=== PATIENT | male | born 1975 | race Caucasian/White ===

== ENCOUNTER 2017-09-04 03:25 | Emergency (ER) | payer OTHER ==
[~2017-09-04] VITALS: Ht 172.7 cm; Wt 86.5 kg
[~2017-09-04 03:25] MED LIST: AMOX500C2; ZITHROMAX
--- NOTE | 2017-09-04 03:50 | ED Upper Extremity ---
General Stated Complaint: POSS SPIDER BITE Source: patient Exam Limitations: no limitations History of Present Illness Time seen by provider: 03:37 Initial Comments Patient presents to ER by private conveyance with chief complaint of swelling and tenderness on his right elbow. It started getting worse this morning the point that he is concerned maybe he's gotten spider bite. He says yesterday he was working tearing out old house and there are a lot of spiders in there. He did not witness any spider bite. He has had no drainage, fever, nausea, vomiting , chills, malaise. He is right-handed. No trauma to the right elbow. He has not taken any elvw-mgg-xvbapfw pain relievers. He smokes about half a pack per day. Denies drug use and only occasional alcohol use. He says he tried to drain it himself by poking a needle in it but nothing really came out of it. Tetanus shot was in the last year Allergies and Home Medications Allergies Coded Allergies: No Known Drug Allergies (Unverified , 03/30/10) Constitutional: No chills, No diaphoresis, No fever, No malaise EENTM: No ear pain, No blurred vision Respiratory: No cough, No short of breath Cardiovascular: No chest pain, No palpitations Gastrointestinal: No diarrhea, No nausea, No vomiting Genitourinary: No discharge, No dysuria Skin: other (swelling and pain over the right elbow) Past Mwxnwga-Bhiebi-Qrklsn Hx Patient Social History Alcohol Use: Occasionally Uses Recreational Drug Use: No Smoking Status: Current Everyday Smoker Type Used: Cigarettes (0.5 ppd) Recent Foreign Travel: No Contact w/Someone Who Travel: No Immunizations Up To Date Date of Pneumonia Vaccine: Nov 03, 2015 Date of Influenza Vaccine: Nov 03, 2015 Reproductive System Hx Reproductive Disorders: No Physical Exam Vital Signs Capillary Refill : General Appearance: WD/WN, no apparent distress HEENT: PERRL/EOMI, pharynx normal Cardiovascular: no edema, no JVD Respiratory: no respiratory distress, no accessory muscle use Shoulder: normal inspection, non-tender, no evidence of injury, normal ROM Elbow/Forearm: normal ROM (no pain to passive or resisted extension of the right wrist), Right, pain, soft tissue tenderness, swelling (over the dorsal portion of the right elbow without a central poor or any purulent discharge.) Wrist: Yes normal inspection, Yes non-tender, Yes no evidence of injury, Yes normal ROM Hand: normal inspection, non-tender, no evidence of injury Neurologic/Psychiatric: alert, normal mood/affect, oriented x 3 Skin: normal color, warm/dry Progress/Results/Core Measures Progress Note : Time: 03:44 Progress Note Appearance is not concordant with an abscess rather looks like he has bursitis / lateral epicondylitis. We will start rice therapy and steroids and if he is not getting better give him strict return precautions. Departure Impression Impression: Primary Impression: Lateral epicondylitis of elbow Additional Impression: Bursitis of elbow Qualified Codes: M70.21 - Olecranon bursitis, right elbow Disposition: 01 HOME, SELF-CARE Condition: Stable Departure-Patient Inst. Decision time for Depature: 03:51 Referrals: SÁNCHEZ PIERSON MD (PCP) Primary Care Physician Patient Instructions: Olecranon Bursitis (DC) Add. Discharge Instructions: Start taking a daily NSAID until your pain and swelling goes away such as Naprosyn 2 capsules twice a day or ibuprofen 4 tablets 3 times a day. If you have pain not controlled by one of the scheduled NSAIDs then you can use 1000 mg of Tylenol every 8 hours as needed in addition. Take 2 tablets of the prednisone daily until complete for 5 days to help bring the swelling down in your elbow. Apply an ice pack directly over the elbow for 20 minutes every 4-6 hours for the first several days to keep the swelling and pain down. Keep n Ray bandage or other compression dressing such as a neoprene elbow sleeve on your elbow at all times except to bathe and keep your elbow elevated above the level of your heart when possible. Rest your elbow for the next several days while it is healing. If you do not see some improvement over the next week or you begin to have worsening symptoms, fever, nausea or vomiting or severe, increasing redness in your elbow you should go to your doctor or you may return to the ER if it is appropriate to be reevaluated. Typical resolution is within 2-4 weeks. Scripts Prednisone (Prednisone) 20 Mg Tab 40 MG PO DAILY for 5 Days, #10 TAB 0 Refills Prov: BIPIN GARCIA 09/04/17 Work/School Note: Work Release Form Date Seen in the Emergency Department: Sep 04, 2017 Return to Work: Sep 05, 2017 Restrictions: No Restrictions Other Restrictions Listed Below: Light duty right elbow for the next 2 weeks. Copy Copies To 1: LIVIER MEDEIROS TITUS J Sep 04, 2017 03:50
[2017-09-04] MEDS ORDERED: PRD20T PO (03:55)
[2017-09-04 04:00] VITALS: BP 138/94
== END 2017-09-04 04:00 | disposition home or self-care (01) ==
LOC: EDUNIT# 03:25 → ER 03:28
DX: M77.11 Lateral epicondylitis, right elbow (principal); M70.31 Other bursitis of elbow, right elbow; F17.210 Nicotine dependence, cigarettes, uncomplicated
CPT/HCPCS: 99282

== ENCOUNTER 2017-10-07 10:00 | Outpatient (RCR) | payer OTHER ==
[2017-09-23] MEDS: VANCOMYCIN 1250 MG/NS 250 ML IVPB IV SCH ×2 (18:22)
[2017-09-23 18:28] VITALS: BP 151/94
[2017-09-23 18:43] VITALS: BP 151/94
[2017-09-23 19:35] VITALS: BP 151/94
[2017-09-24] MEDS: VANCOMYCIN 1250 MG/NS 250 ML IVPB IV SCH ×4 (08:55→18:12)
[2017-09-24] MEDS: CATHETER FLUSH 10 ML SYR IV PRN ×3 (08:55→18:13)
[2017-09-24 10:37] VITALS: BP 151/80
[2017-09-24 17:50] VITALS: BP 134/85
[2017-09-25 07:55] VITALS: BP 124/90
[2017-09-25] MEDS: CATHETER FLUSH 10 ML SYR IV PRN ×3 (08:05→18:56)
[2017-09-25] MEDS: VANCOMYCIN 1250 MG/NS 250 ML IVPB IV SCH ×4 (08:05→18:47)
[2017-09-25 18:04] VITALS: BP 140/81
[2017-09-25 20:12] VITALS: BP 140/81
[2017-09-26] MEDS: CATHETER FLUSH 10 ML SYR IV PRN ×2 (08:09→18:17)
[2017-09-26] MEDS: VANCOMYCIN INJECTION 1,750 MG in NS IV 500 ML 500 ML IV SCH ×2 (08:10→18:17)
[2017-09-26 10:30] VITALS: BP 135/78
[2017-09-26 18:27] VITALS: BP 138/88
[2017-09-27 07:19] VITALS: BP 120/73
[2017-09-27] MEDS: VANCOMYCIN INJECTION 2,000 MG in NS IV 500 ML 500 ML IV SCH ×2 (08:26→18:03)
[2017-09-27 08:45] VITALS: BP 120/73
[2017-09-27 10:32] VITALS: BP 120/73
[2017-09-27 17:50] VITALS: BP 157/94
[2017-09-27 20:22] VITALS: BP 157/94
[2017-09-28] MEDS: CATHETER FLUSH 10 ML SYR IV PRN ×2 (08:00→10:05)
[2017-09-28] MEDS: VANCOMYCIN INJECTION 2,000 MG in NS IV 500 ML 500 ML IV SCH ×2 (08:02→18:30)
[2017-09-28 10:10] VITALS: BP 151/84
[2017-09-28 17:45] VITALS: BP 136/83
[2017-09-28 20:30] VITALS: BP 136/83
[2017-09-29 08:05] VITALS: BP 137/93
[2017-09-29] MEDS: CATHETER FLUSH 10 ML SYR IV PRN (08:25)
[2017-09-29] MEDS: VANCOMYCIN INJECTION 2,000 MG in NS IV 500 ML 500 ML IV SCH (08:30)
[2017-09-30] MEDS: VANCOMYCIN INJECTION 2,000 MG in NS IV 500 ML 500 ML IV SCH (08:30)
[2017-10-01] MEDS: VANCOMYCIN INJECTION 2,000 MG in NS IV 500 ML 500 ML IV SCH ×2 (08:18→18:03)
[2017-10-01 08:25] VITALS: BP 137/80
[2017-10-01 18:15] VITALS: BP 138/86
[~2017-10-07] VITALS: Ht 172.7 cm; Wt 83.9 kg
[~2017-10-07 10:00] MED LIST changes: +CEPH500C PO; +CEPH500T PO; +HYDR-34 PO; +PRD20T PO; +TROUGH ORDER-PHARMACY XX NR; +VANC1.257 IV
[2017-10-07 10:10] VITALS: BP 119/68
== END 2017-12-22 | disposition home or self-care (01) ==
LOC: 4TH RCR 10:00
PROVIDERS: ATTEND Internal Medicine
DX: L02.511 Cutaneous abscess of right hand (principal)
CPT/HCPCS: 36415; 36592; 76937; 80202; 96365; 96366; 99211; 99212

== ENCOUNTER 2021-06-05 16:24 | Emergency (ER) | payer BC, OTHER ==
[~2021-06-05] VITALS: Ht 172 cm; Wt 82.0 kg
[~2021-06-05 16:24] MED LIST changes: -TROUGH ORDER-PHARMACY XX NR
[2021-06-05] MEDS ORDERED: LIDOCAINE 1% INJ 20 ML 20 ML VIAL INJ ONE (18:00)
[2021-06-05] MEDS ORDERED: CEPH500T PO (18:36)
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
[2021-06-05 20:49] VITALS: BP 120/65
== END 2021-06-05 20:49 ==
LOC: EDUNIT# 16:24 → ER 16:26
DX: S81.812A Laceration without foreign body, left lower leg, initial encounter (principal); W26.8XXA Contact with other sharp object(s), not elsewhere classified, initial encounter

== ENCOUNTER 2021-06-18 17:26 | Emergency (ER) | payer BC ==
[~2021-06-18] VITALS: Ht 170 cm; Wt 79.3 kg
[2021-06-18 17:40] VITALS: BP 123/70
== END 2021-06-18 17:44 | disposition home or self-care (01) ==
LOC: EDUNIT# 17:26 → ER 17:28
DX: Z48.02 Encounter for removal of sutures (principal)

== ENCOUNTER 2021-07-29 05:58 | Emergency (ER) | payer BC, OTHER ==
[~2021-07-29] VITALS: Ht 175.3 cm; Wt 86.2 kg
[2021-07-29] MEDS ORDERED: CLIN300C12 (06:10)
[2021-07-29] MEDS ORDERED: PANTOPRAZOLE 40 MG (PROTONIX) VIAL IV ONE (06:15)
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
[2021-07-29 06:34] LABS: BASOPHILS % (AUTO) 0 % (0-10); EOSINOPHILS % (AUTO) 0 % (0-10); HEMATOCRIT 46 % (40-54); HEMOGLOBIN 16.1 g/dL (13.3-17.7); LYMPHOCYTES % (AUTO) 23 % (12-44); MEAN CORPUSCULAR HEMOGLOBIN 32 pg (25-34); MEAN CORPUSCULAR HGB CONC 35 g/dL (32-36); MEAN CORPUSCULAR VOLUME 92 fL (80-99); MEAN PLATELET VOLUME 8.5 fL (9.0-12.2); MONOCYTES # (AUTO) 0.6 10^3/uL (0.0-1.0); MONOCYTES % (AUTO) 7 % (0-12); NEUTROPHILS # (AUTO) 5.9 10^3/uL (1.8-7.8); NEUTROPHILS % (AUTO) 70 % (42-75); PLATELET COUNT 309 10^3/uL (130-400); WHITE BLOOD COUNT 8.5 10^3/uL (4.3-11.0)
[2021-07-29 06:36] LABS: BILIRUBIN,URINE NEGATIVE (NEGATIVE); CLARITY,URINE CLOUDY; COLOR,URINE YELLOW; GLUCOSE, URINE (UA) NEGATIVE (NEGATIVE); KETONES,URINE NEGATIVE (NEGATIVE); LEUKOCYTE ESTERASE ,URINE NEGATIVE (NEGATIVE); NITRITE,URINE NEGATIVE (NEGATIVE); PROTEIN,URINE NEGATIVE (NEGATIVE)
[2021-07-29 06:42] LABS: AMORPHOUS SEDIMENT,UR LARGE AMOR PHOSPHATE /LPF; BACTERIA,URINE NEGATIVE /HPF
[2021-07-29 06:47] LABS: AMPHETAMINE SCREEN, URINE POSITIVE (NEGATIVE); BARBITURATE SCREEN URINE NEGATIVE (NEGATIVE); BENZODIAZEPINES SCREEN URINE NEGATIVE (NEGATIVE); CANNABINOID SCREEN, URINE POSITIVE (NEGATIVE); COCAINE SCREEN URINE NEGATIVE (NEGATIVE); METHADONE STAT NEGATIVE (NEGATIVE); METHAMPHETAMINE SCREEN URINE S POSITIVE (NEGATIVE); OPIATE SCREEN URINE NEGATIVE (NEGATIVE); OXYCODONE STAT NEGATIVE (NEGATIVE); PROPOXYPHENE STAT NEGATIVE (NEGATIVE); TRICYCLIC ANTIDEPRESSANTS SCRE NEGATIVE (NEGATIVE)
[2021-07-29 06:59] LABS: ALBUMIN 4.6 GM/DL (3.2-4.5)
[2021-07-29 07:00] LABS: CHLORIDE 103 MMOL/L (98-107); POTASSIUM 4.3 MMOL/L (3.6-5.0); SODIUM 140 MMOL/L (135-145)
[2021-07-29 07:01] LABS: CALCIUM 9.7 MG/DL (8.5-10.1)
[2021-07-29 07:02] LABS: AMYLASE 55 U/L (25-125); GLUCOSE 114 MG/DL (70-105); TOTAL PROTEIN 7.3 GM/DL (6.4-8.2)
[2021-07-29 07:03] LABS: CARBON DIOXIDE 26 MMOL/L (21-32)
[2021-07-29 07:04] LABS: BILIRUBIN,TOTAL 0.5 MG/DL (0.1-1.0)
[2021-07-29 07:05] LABS: ALKALINE PHOSPHATASE 83 U/L (40-136)
[2021-07-29 07:06] LABS: CREATININE SERUM 1.06 MG/DL (0.60-1.30); GFR ESTIMATED 76
[2021-07-29 07:07] LABS: BUN/CREATININE RATIO 8
[2021-07-29 07:08] LABS: ALANINE AMINOTRANSFERASE 19 U/L (0-55)
[2021-07-29 07:10] LABS: LIPASE 52 U/L (8-78)
[2021-07-29] MEDS ORDERED: HOLD METFORMIN - RECEIVED CONTRAST 20 ML VIAL IV SCH (07:15)
[2021-07-29] MEDS ORDERED: IOHEXOL 350 MG/ML 100 ML (OMNIPAQUE 350) VIAL IV ONE (07:15)
[2021-07-29] MEDS ORDERED: NS 100 ML (IVPB) BAG IV ONE (07:15)
[2021-07-29] MEDS ORDERED: CATHETER FLUSH 10 ML SYR IV PRN (07:15)
--- NOTE | 2021-07-29 07:42 | Diagnostic Imaging Report ---
PROCEDURE: CT abdomen and pelvis with contrast. TECHNIQUE: Multiple contiguous axial images were obtained through the abdomen and pelvis after administration of intravenous contrast. Auto Exposure Controls were utilized during the CT exam to meet ALARA standards for radiation dose reduction. All CT scans use one or more of the following dose optimizing techniques: automated exposure control, MA and/or KvP adjustment based on patient size and exam type or iterative reconstruction. INDICATION: Mid abdominal pain Lung bases are clear. Liver appears normal. Gallbladder is decompressed. Pancreas is unremarkable. Spleen is not enlarged. Kidneys and adrenals appear normal. Small bowel is not dilated. There is large amount of stool in the colon. No evidence for appendicitis. Urinary bladder is normal. Prostate is not enlarged. IMPRESSION: Fecal stasis consistent with constipation. No acute abnormality seen in the abdomen or pelvis. Dictated by: Dictated on workstation # [id number]
[2021-07-29] MEDS ORDERED: PANT40TA2 PO (07:46)
[2021-07-29 08:23] VITALS: BP 148/98
== END 2021-07-29 08:23 | disposition home or self-care (01) ==
LOC: EDUNIT# 05:58 → ER 06:00
DX: K59.00 Constipation, unspecified (principal); F17.210 Nicotine dependence, cigarettes, uncomplicated; Z86.14 Personal history of Methicillin resistant Staphylococcus aureus infection
CPT/HCPCS: 74177; 80053; 80306; 81000; 82150; 83690; 83735; 85025; 99284; G0480; 36415; 80320

== ENCOUNTER 2022-03-31 02:02 | Emergency (ER) | payer BC ==
[~2022-03-31] VITALS: Ht 173 cm; Wt 86.2 kg
[~2022-03-31 02:02] MED LIST changes: +CLIN-144; +PANT40TA2 PO
[2022-03-31 02:04] VITALS: BP 157/98
[2022-03-31] MEDS ORDERED: LACTATED RINGERS 1,000 ML IV ONE (02:30)
[2022-03-31 02:34] LABS: BASOPHILS % (AUTO) 0 % (0-10); EOSINOPHILS % (AUTO) 0 % (0-10); HEMATOCRIT 41 % (40-54); HEMOGLOBIN 14.5 g/dL (13.3-17.7); LYMPHOCYTES # (AUTO) 1.3 10^3/uL (1.0-4.0); LYMPHOCYTES % (AUTO) 12 % (12-44); MEAN CORPUSCULAR HEMOGLOBIN 31 pg (25-34); MEAN CORPUSCULAR HGB CONC 36 g/dL (32-36); MEAN CORPUSCULAR VOLUME 88 fL (80-99); MEAN PLATELET VOLUME 8.5 fL (9.0-12.2); MONOCYTES # (AUTO) 0.4 10^3/uL (0.0-1.0); MONOCYTES % (AUTO) 3 % (0-12); NEUTROPHILS # (AUTO) 9.8 10^3/uL (1.8-7.8); NEUTROPHILS % (AUTO) 85 % (42-75); PLATELET COUNT 411 10^3/uL (130-400); WHITE BLOOD COUNT 11.6 10^3/uL (4.3-11.0)
[2022-03-31 02:41] LABS: CHLORIDE 105 MMOL/L (98-107); POTASSIUM 3.7 MMOL/L (3.6-5.0); SODIUM 138 MMOL/L (135-145)
[2022-03-31 02:42] LABS: ALBUMIN 4.5 GM/DL (3.2-4.5)
[2022-03-31 02:43] LABS: CALCIUM 9.2 MG/DL (8.5-10.1)
[2022-03-31 02:44] LABS: GLUCOSE 125 MG/DL (70-105); TOTAL PROTEIN 7.4 GM/DL (6.4-8.2)
[2022-03-31 02:45] LABS: CARBON DIOXIDE 20 MMOL/L (21-32)
[2022-03-31 02:46] LABS: BILIRUBIN,TOTAL 0.5 MG/DL (0.1-1.0)
[2022-03-31 02:48] LABS: ALKALINE PHOSPHATASE 75 U/L (40-136); CREATININE SERUM 1.03 MG/DL (0.60-1.30); GFR ESTIMATED 91
[2022-03-31 02:49] LABS: BUN/CREATININE RATIO 13
[2022-03-31 02:51] LABS: ALANINE AMINOTRANSFERASE 22 U/L (0-55); SALICYLATE < 5.0 MG/DL (5.0-20.0)
[2022-03-31 02:59] LABS: ACETAMINOPHEN < 10 UG/ML (10-30)
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
[2022-03-31 03:11] LABS: TSH (THYROID ANALYZER) 1.46 UIU/ML (0.35-4.94)
== END 2022-03-31 03:05 | disposition left against medical advice (07) ==
LOC: EDUNIT# 02:02 → ER 02:04
DX: R11.0 Nausea (principal); F17.210 Nicotine dependence, cigarettes, uncomplicated; Z20.822 Contact with and (suspected) exposure to COVID-19
CPT/HCPCS: 80053; 84443; 85025; 87636; 93005; 99284; G0480 ×3; 36415; 80320; 80329